=== PATIENT | male | born 1985 | race Caucasian/White ===

== ENCOUNTER → 2020-06-21 | Outpatient (CLI) | payer OTHER ==
[~2020-06-21] VITALS: Ht 180.3 cm; Wt 122.5 kg
[2020-06-21 10:18] VITALS: BP 114/78
[2020-06-21 10:26] LABS: HEMOGLOBIN 17.2 gm/dL (14.0-18.0); MCH 27.5 pg (26.0-34.0); MCHC 34.3 g/dL (28.0-37.0); MCV 80.1 fL (80.0-100.0); RBC 6.24 mil/uL (4.50-6.00); RDW-CV 13.8 % (10.5-14.5); WBC 9.1 thou/uL (4.0-11.0)
[2020-06-21 10:34] LABS: CALCIUM 9.2 mg/dL (8.5-10.1); CREATININE 1.1 mg/dL (0.6-1.3); POTASSIUM 3.7 mmol/L (3.5-5.1)
[2020-06-21 10:38] LABS: ALBUMIN 4.6 g/dL (3.4-5.0); TOTAL BILIRUBIN 0.7 mg/dL (<0.1-1.0); TOTAL PROTEIN 8.4 g/dL (6.4-8.2)
[2020-06-21 10:41] LABS: APTT 28.6 Seconds (25.0-31.3); INR 1.1; PROTIME 11.6 Seconds (9.20-11.50)
--- NOTE | 2020-06-21 10:50 | EKG ---
[place] [address] ELECTROCARDIOGRAM REPORT Name: LORENZAHEMALATHA Bob Room: [facility]#: [id number] Admission: 06/21/20 Attend Phys: Roel Andersen MD Discharge: Date of : 87 Date of Service: 06/21/20 1034 Report #: [id number] THIS REPORT FOR: //name// [facility] Test Date: 2020-06-21 Test Time: 10:34:13 Pat Name: HEMALATHA BRITT Department: Room: Gender: Insurance Collector: : 1985 Requested By: Roel Andersen Order Number: [id number] Dipak MD: Roel Andersen Measurements Intervals [place] Rate: 76 P: 65 WI: 161 QRS: 16 QRSD: 89 T: 60 QT: 372 QTc: 419 Interpretive Statements Sinus rhythm No previous ECG available for comparison Electronically Signed On 06-21-2020 10:50:14 CDT by Roel Andersen [email or web address] <ELECTRONICALLY SIGNED> By: Roel Andersen MD, [facility] 06/21/20 1050 1034 1034 Roel Andersen MD, FACC /EPI
[2020-06-21 13:15] VITALS: BP 108/78
[2020-06-21 13:32] VITALS: BP 142/82
[2020-06-21 13:45] VITALS: BP 142/82
[2020-06-21 14:16] VITALS: BP 121/58
[2020-06-21 14:36] VITALS: BP 117/53
--- NOTE | 2020-06-21 15:25 | EKG ---
[place] [address] ELECTROCARDIOGRAM REPORT Name: HEMALATHA BRITT Room: [facility]#: [id number] Admission: 06/21/20 Attend Phys: Roel Andersen MD Discharge: Date of : 87 Date of Service: 06/21/207 Report #: [id number] THIS REPORT FOR: //name// [facility] Test Date: 2020-06-21 Test Time: 14:07:21 Pat Name: HEMALATHA BRITT Department: Room: Gender: Storeroom Attendant: : 1985 Requested By: Roel Andersen Order Number: [id number] Dipak MD: Roel Andersen Measurements Intervals [place] Rate: 91 P: 56 MS: 155 QRS: 18 QRSD: 85 T: 83 QT: 349 QTc: 430 Interpretive Statements Sinus rhythm Compared to ECG 06/21/2020 10:34:13 No significant changes Electronically Signed On 06-21-2020 15:25:39 CDT by Roel Andersen [email or web address] <ELECTRONICALLY SIGNED> By: Roel Andersen MD, [facility] 06/21/20 1525 06 Roel Andersen MD, FAC /EPI
--- NOTE | 2020-06-21 16:39 | CARD ---
[address] [address] CARDIAC CATH REPORT Name: HEMALATHA BRITT Room: [facility]#: [id number] Admission: 06/21/20 Attend Phys: Roel Andersen MD, F Discharge: Date of : 87 Report #: [id number] THIS REPORT FOR: //name// cc: Jhon Murray Vincent R. DO ~ APPROVED REPORT Study performed: 06/21/2020 08:49:44 Patient Status: Out-Patient Room #: Event Personnel: Roel Andersen Lap Cutter Truer Operator, Pallavi Cloud RN, Wei Leary Kramer, Jessie Monitor, Madie Pastor RN Exam: Insertion of Dual Chamber Permanent Pacemaker Indications: Sick Sinus Syndrome/Tachy Wade Syndrome The patient is a 35 year-old male with a history of Sick Sinus Syndrome. Conscious Sedation Start time: 11:25 End Time: 15:50 Implanted Devices: permanent biotronic dual chamber MRI compatible pacemaker and leads Procedure The patient underwent informed consent. We discussed the details of the procedure including the risks, which include, but not limited to bleeding, infection, vascular damage, cardiac perforation, and pneumothorax. He understood these risks and was willing to proceed. As such, he was brought to the EP/Cardiac Catheterization laboratory in a fasting and sedated state and prepped and draped in a sterile fashion, received IV antibiotics prior to initiation of the procedure and a venogram was performed showing patency of the left axillary vein. The patient underwent conscious sedation, with no related complications. The patient was brought to the EP/Cardiac Catheterization laboratory and the left chest and shoulder were prepped and draped in a sterile manner. During this case, Fluoroscopy and Visipaque 20 ml were used for imaging. The left subclavian region was infiltrated with 2% Lidocaine subcutaneous anesthesia. A transverse incision was made in the left upper chest cavity. The subcutaneous pocket [place] [address] CARDIAC CATH REPORT Name: HEMALATHA BRITT Room: [facility]#: [id number] Admission: 06/21/20 Attend Phys: Roel Andersen MD, F Discharge: Date of : 87 Report #: [id number] venous access was achieved and an introducer sheath was inserted into the left Subclavian vein. Sheaths were positions using the modified Seldinger technique Through the introducer sheaths the atrial and ventricular lead wires were positioned in the right atrial appendage and right ventricular apex respectively. Utilizing fluoroscopic guidance, the atrial and ventricular lead wires were advanced over the wires and positioned in the right atria and right ventricle respectively. Capturing and sensing thresholds were verified. Electrode Parameters P Wave: 6.8 mv R Wave: 12.3 mv Atrial Threshold: 0.8 v @ 0.4 ms Ventricular Threshold: 0.6 v @ 0.4 ms Atrial Resistance: 565 ohm Ventricular Resistance: 799 ohm Dual Chamber The atrial and ventricular leads were then secured using 0 silk sutures. The subcutaneous pocket was irrigated with ancef antibiotic solution.The atrial and ventricular leads were attached to the appropriate receptacles on the pulse generator and set screws firmly tightened to insure adequate contact and stability. The lead and pulse generator were placed into the subcutaneous pocket. Sharp and sponge counts were confirmed to be correct. At this time the pocket was closed subcutaneously with a 0 Vicryl and the skin was closed with a 4.0 Vicryl. The operative site was dressed in sterile fashion with skin affix and the patient was transferred to the floor in stable condition. Complications The patient tolerated the procedure well and there were no complications associated with the procedure. Findings Specimens Removed: No Estimated Blood Loss: less than 5cc Conclusion successful placement of a dual chamber pacemaker generator and leads <ELECTRONICALLY SIGNED> By: Roel Andersen MD, [facility] 06/21/20 1638 1638 1638Roel Andersen MD, [facility] /INF
== END | disposition home or self-care (01) ==
LOC: M.CL 09:38
PROVIDERS: ATTEND Internal Medicine Cardiovascular Disease
DX: I49.5 Sick sinus syndrome (principal); R55 Syncope and collapse; R06.02 Shortness of breath